=== PATIENT | female | born 1955 | race Caucasian/White ===

== ENCOUNTER 2017-06-02 19:36 | Emergency (ER) | payer OTHER ==
[~2017-06-02] VITALS: Ht 167.6 cm; Wt 54.4 kg
[~2017-06-02 19:36] MED LIST: ACTONEL150 MG PO; AMITRIPTYLINE H10 M3 PO; ATORVASTATIN CA40 MG PO; CATAPRES-TTS 10.1 M1 TRANSDERM; CENTRUM SILVER1 EAC4 PO; CLEOCIN HCL300 MG PO; COZAAR 25 MG TA25 M1 PO; FISH OIL 1,001000 M2 PO; LISINOPRIL10 MG PO; MUCINEX TA600 MG/TA2 PO; OYSTER SHELL C1 EAC1 PO; SIMVASTATIN20 MG PO; ULTRAM 50MG TAB50 MG PO; VITAMIN D3400 UNIT PO; VITAMINC500 PO; ZYRTEC; ZYRTEC10 MG PO
[2017-06-02] MEDS ORDERED: AUGMENTIN 875875 MG PO (20:19)
== END 2017-06-02 20:29 | disposition home or self-care (01) ==
LOC: ER 19:36
DX: S81.052A Open bite, left knee, initial encounter (principal); W55.01XA Bitten by cat, initial encounter; Y93.01 Activity, walking, marching and hiking; Y92.89 Other specified places as the place of occurrence of the external cause; Y99.8 Other external cause status